=== PATIENT | female | born 1945 | race Caucasian/White ===

== ENCOUNTER 2018-06-15 15:31 | Emergency (ER) | payer BC ==
[~2018-06-15] VITALS: Ht 175.3 cm; Wt 72.6 kg
[2018-06-15 15:31] VITALS: BP 134/98
[2018-06-15] MEDS ORDERED: OXYC-128 PO (15:39)
[2018-06-15] MEDS ORDERED: HYDROCODONE/APAP 5/325MG 1 EACH TABLET PO ONE (16:30)
[2018-06-15] MEDS ORDERED: HYDROCODONE/APAP 5/325MG 1 EACH TABLET ONE (16:31)
== END 2018-06-15 17:02 | disposition home or self-care (01) ==
LOC: ER 15:39
DX: M25.511 Pain in right shoulder (principal); F17.200 Nicotine dependence, unspecified, uncomplicated; Z60.2 Problems related to living alone
CPT/HCPCS: 99283; A4606; Z7610

== ENCOUNTER 2019-06-22 11:08 | Emergency (ER) | payer OTHER ==
[~2019-06-22] VITALS: Ht 175.3 cm; Wt 77.1 kg
[~2019-06-22 11:08] MED LIST: OXYC-128 PO
--- NOTE | 2019-06-22 11:30 | NUR ---
C/O R ELBOW PAIN S/P GLF "TRIP ON THE SIDE WALK" -HEAD INJURY, -KO. PATIENT A/OX4, NO DISTRESS NOTED, BREATHING EVEN AND UNLABORED, ATTACHED TO THE MONITOR, KEPT COMFORTABLE, NEEDS ATTENDED.
[2019-06-22] MEDS ORDERED: ACETAMINOPHEN ES 500 MG TABLET ONE (11:54)
[2019-06-22] MEDS ORDERED: ACETAMINOPHEN ES 500 MG TABLET PO ONE (12:00)
[2019-06-22] MEDS ORDERED: HYDROCODONE/APAP 5/325MG 1 EACH TABLET PO ONE (12:30)
[2019-06-22] MEDS ORDERED: HYDROCODONE/APAP 5/325MG 1 EACH TABLET ONE (12:32)
[2019-06-22 12:46] VITALS: BP 144/90
== END 2019-06-22 12:48 | disposition home or self-care (01) ==
LOC: ER 11:10
DX: S52.021A Displaced fracture of olecranon process without intraarticular extension of right ulna, initial encounter for closed fracture (principal); F17.200 Nicotine dependence, unspecified, uncomplicated; Z60.2 Problems related to living alone; W01.0XXA Fall on same level from slipping, tripping and stumbling without subsequent striking against object, initial encounter; Y93.89 Activity, other specified; Y92.480 Sidewalk as the place of occurrence of the external cause; Y99.8 Other external cause status
CPT/HCPCS: 73080-TC

== ENCOUNTER 2023-09-06 12:04 | Emergency (ER) | payer OTHER ==
[~2023-09-06] VITALS: Ht 175.3 cm; Wt 81.6 kg
[2023-09-06 12:15] VITALS: TEMP 98.2
[2023-09-06 13:06] VITALS: BP 125/70; O2SAT 96
== END 2023-09-06 13:07 | disposition home or self-care (01) ==
LOC: ER 12:10
DX: S80.11XA Contusion of right lower leg, initial encounter (principal); F17.200 Nicotine dependence, unspecified, uncomplicated; Z79.899 Other long term (current) drug therapy; Z60.2 Problems related to living alone; V89.2XXA Person injured in unspecified motor-vehicle accident, traffic, initial encounter; Y93.89 Activity, other specified; Y92.89 Other specified places as the place of occurrence of the external cause; Y99.8 Other external cause status
CPT/HCPCS: 73564-TC